=== PATIENT | female | born 1950 | race Caucasian/White ===

== ENCOUNTER 2024-12-31 09:35 | Emergency (ER) | payer MEDICARE ==
[~2024-12-31] VITALS: Ht 154.9 cm; Wt 77.3 kg
[2024-12-31 09:58] VITALS: TEMP 98.2
--- NOTE | 2024-12-31 12:14 | Physician Documentation ---
History of Present Illness ~ Chief Complaint: Rash Stated Complaint: RASH Time Seen by MD: 10:02 HPI Patient states that she did start with a rash on her right side of her abdomen on Tuesday that has spread in developed across her right ribcage to the midline of her back. She states it feels like it is a burning. She states she did have chickenpox as a kid. She also states she did not get the herpes zoster vaccine about seven years ago. She also states she got COVID and flu vaccines on Tuesday however states the rash was already present and developing at that time. She denies any fever or chills or cough or coryza. Medication Reconciliation Allergies: Coded Allergies: No Known Allergies (Unverified , 12/31/24) Review of Systems Constitutional: Denies: chills, fever, weakness Eyes: Denies: pain, blurred vision ENT: Denies: ear pain, nose pain, throat pain, mouth pain Respiratory: Denies: cough, shortness of breath Cardiovascular: Denies: chest pain, palpitations Gastrointestinal: Denies: abdominal pain, nausea, vomiting Genitourinary: Denies: burning, dysuria Female Genitalia: Denies: vaginal discharge, pelvic pain Neurological: Denies: headache, dizziness Musculoskeletal: Denies: pain, swelling Integumentary: Denies: rash, lesions Allergic/Immunologic: Denies: hives, itching Hematologic/Lymphatic: Denies: no symptoms reported Psychiatric: Denies: depression, anxiety Physical Exam Vital Signs: Temperature: 98.2, Source: Temporal, Heart Rate: 88, Respiratory Rate: 18, BP: 163/83, Pulse Oximetry: 98, Weight: 77.270 Physical Exam General: Awake and Alert, no acute distress. HEENT: Conjunctiva pink, Sclera clear, Mucus Membranes moist. Neck: Supple without masses and tenderness. Resp: Unlabored. Lungs clear to auscultation bilaterally. Heart: Regular Rate and rhythm, normal S1 and S2 without murmur, rub or gallop. Extremities: No cyanosis,clubbing or edema. Skin: Patient on exam does have classic herpes zoster shingles type rash on the right abdomen and flank that does not cross the midline of the abdomen or the back. Rash is erythematous base with small vesicles. Progress Results/Orders Results/Orders Vital Signs 12/31/24 09:58 Temp 98.2 Pulse 88 Resp 18 B/P (MAP) 163/83 Pulse Ox 98 Medical Decision Making Findings Patient states that she did start with a rash on her right side of her abdomen on Tuesday that has spread in developed across her right ribcage to the midline of her back. She states it feels like it is a burning. She states she did have chickenpox as a kid. She also states she did not get the herpes zoster vaccine about seven years ago. She also states she got COVID and flu vaccines on Tuesday however states the rash was already present and developing at that time. She denies any fever or chills or cough or coryza. Patient was started on valacyclovir a 1000 mg by mouth in the ED today. Patient will continue Tylenol and ibuprofen at home as needed for symptomatic relief. Prescription of valacyclovir 1000 mg t.i.d. for seven days sent to patient's pharmacy. Patient will return to ED with any worsening, concerning or changing symptoms. Departure Disposition: 01 HOME / SELF CARE / HOMELESS Impression: Primary Impression: Shingles (herpes zoster) polyneuropathy Condition: Stable Discharge Instructions: Shingles, [id number] Additional Instructions: Patient was started on valacyclovir a 1000 mg by mouth in the ED today. Patient will continue Tylenol and ibuprofen at home as needed for symptomatic relief. Prescription of valacyclovir 1000 mg t.i.d. for seven days sent to patient's pharmacy. Patient will return to ED with any worsening, concerning or changing symptoms. Referrals: NO PRIMARY CARE PROVIDER (PCP) Prescriptions Valacyclovir HCl (Valacyclovir) 1,000 Mg Tablet 1 TAB PO Q8H for 7 Days, #21 TAB 0 Refills Prov: ERNIE JUSTICE 12/31/24 Signature Scribe Signature: No scribe Attestation: No scribe ERNIE JUSTICE PAC Dec 31, 2024 12:14
[2024-12-31] MEDS ORDERED: VALA100031 PO (12:21)
[2024-12-31 12:36] VITALS: BP 169/74; PULSE 84; RESP 16; O2SAT 98
== END 2024-12-31 12:38 | disposition home or self-care (01) ==
LOC: ER 09:36
DX: B02.23 Postherpetic polyneuropathy (principal)
CPT/HCPCS: 99284